=== PATIENT | female | born 1980 | race Caucasian/White ===

== ENCOUNTER 2024-12-09 14:53 | Inpatient (IN) | payer MEDICAID ==
[2024-12-09] MEDS ORDERED: HALOPERIDOL LACTATE 5 MG/ML 1 ML VIAL IM PRN (16:21)
[2024-12-09] MEDS ORDERED: IBUPROFEN 600 MG TAB PO PRN (16:21)
[2024-12-09] MEDS ORDERED: LORazepam 2 MG/ML INJ IM PRN (16:21)
[2024-12-09] MEDS ORDERED: ACETAMINOPHEN TAB 325 MG TAB PO PRN (16:21)
[2024-12-09] MEDS ORDERED: MAG HYDROX/AL HYDROX/SIMETH 355 ML BOTTLE PO PRN (16:21)
[2024-12-09] MEDS ORDERED: MAGNESIUM HYDROXIDE 2,400 MG/30 ML CUP PO PRN (16:21)
[2024-12-09] MEDS: haloperidoL 5 MG TAB PO PRN (21:04)
[2024-12-09] MEDS: LORazepam 1 MG TAB PO PRN (21:04)
[2024-12-10] MEDS: NICOTINE 14MG/24HR PATCH TRANSDERM SCH (10:09)
[2024-12-10] MEDS: NICOTINE GUM (POLACRILEX) 2 MG GUM BUCCAL PRN (10:53)
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
[2024-12-11] MEDS: PALIPERIDONE 6 MG TAB.ER.24 PO SCH (00:41)
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
[2024-12-11] MEDS: traZODone HCL 50 MG TAB PO PRN (21:47)
[2024-12-12 08:20] LABS: HCT 37.9 % (37.2-46.3); HGB 12.6 g/dL (12.0-15.0); MCH 32.6 pg (27.0-32.0); MCHC 33.2 g/dL (32.0-37.0); MCV 97.9 fL (80.0-97.0); Mean Platelet Volume 11.8 fL (9.5-12.2); Platelet Count 166 10*3/uL (140-440); RBC 3.87 10*6/uL (4.10-5.20); WBC 6.49 10*3/uL (4.50-10.00)
[2024-12-12 08:52] LABS: ALT 18 U/L (4-34); AST 23 U/L (14-36); African American GFR (CKD) >90 (>60 ml/min/1.73 sqM); Albumin 4.1 g/dL (3.5-5.0); Alkaline Phosphatase 80 U/L (38-126); Anion Gap 3 mmol/L; Blood Urea Nitrogen 12 mg/dL (7-17); Calcium 9.8 mg/dL (8.4-10.2); Carbon Dioxide 30 mmol/L (22-30); Chloride 103 mmol/L (98-107); Glucose 105 mg/dL (74-99); Non-African American GFR(CKD) >90 (>60 ml/min/1.73 sqM); Potassium 4.7 mmol/L (3.5-5.1); Sodium 136 mmol/L (137-145); Total Bilirubin 0.3 mg/dL (0.2-1.3); Total Protein 6.4 g/dL (6.3-8.2)
--- NOTE | 2024-12-12 10:50 | P.PN ---
Progress Note - Text Progress Note Date: 12/12/24 Interval History: Patient was seen staring out the window in her room and was directable and agr eeable to speak with play writer in the shepherd at her request. Patient continues to refuse her Invega however has been receiving as needed trazodone and Ativan for sleep and anxiety. She continues to display poor insight, stated that she does not need any medications other than benzodiazepines as they have been effective in the past. She claims feeling more clearheaded with concerns that Invega might cause sedation. Patient displayed paranoia, stated that the police is trying to take her organs and that was why she was ultimately brought here. She mentions sleeping well overnight. The involuntary process was explained and patient became upset stating play writer is trying to push medications that she does not need. She states not having anywhere to go upon discharge, unsure where her children are. At this time patient denies any suicidal or homicidal ideations, intent or plan. Mental Status Exam: General Appearance: Patient appears to be stated age is alert, directable, and cooperative. Behavior: Patient is calmly standing without any agitated behavior. Irritable Speech: Patient's speech is fluent and nonpressured. Mood/Affect: Mood is "upset", affect is congruent and constricted. Suicidality/Homicidality: Patient denies having any suicidal or homicidal ideation intent or plan. Perceptions: Patient denies any visual hallucinations and denies any auditory hallucinations Though content/process: There is evidence of paranoid delusions Memory and concentration: AOX3, grossly intact for the purposes of this session Judgment and insight: Poor Assessment Psychosis, unspecified Rule out schizophrenia versus schizoaffective disorder Nicotine dependence Plan: -Patient continues to meet criteria for inpatient psychiatric admission for symptom stabilization and safety. Patient has not signed adult voluntary form and medication consent and was placed in patient's chart. -Medications: Continue to offer Invega 6 mg at bedtime for psychosis, trazodone 50 mg as needed at bedtime for insomnia (note patient has been refusing this medication) -When necessary Ativan and Haldol for agitation/aggression. -Labs: Reviewed prior to arrival -NRT - nicotine patch -SW on board for discharge planning. Encouraged the patient to participate in milieu. Deferral scheduled for this afternoon with full hearing next week
--- NOTE | 2024-12-12 21:43 | P.MDCNMH ---
<Tete Leary - Last Filed: 12/12/24 21:43> History of Present Illness H&P Date: 12/11/24 Patient is a 44 year old female with no significant past medical history, admitted to this hospital for psychosis and nicotine dependence, seen today in medical consultation for medical management. Patient initially presented to the hospital with paranoia. She was transferred from [facility]. The patient was found walking in the street in front of cars waving them down and barefoot, talking to herself with bizarre behavior. She has been admitted for psychosis, schizophrenia versus schizoaffective disorder. She is currently being treated with Haldol, Ativan, Invega, Desyrel. Patient denies taking any medications at home for medical conditions. At the time of this interview patient denies fever, chills, shortness of breath, cough, chest pain, palpitations, abdominal pain, nausea, vomiting, hematuria, dysuria, hematochezia, melena, headache, slurred speech, numbness, tingling, dizziness, lightheadedness, blurred vision, double vision. Vitals T 97.9 F, [place] 62 bpm, RR 18, BP 119/73, oxygen saturation 97% on room air Review of systems: Pertinent positives and negatives as discussed in HPI, a complete review of systems was performed and all other systems are negative. Physical examination: Vital signs reviewed General: nontoxic, no distress, appears at stated age Derm: warm, dry, intact Head: atraumatic, normocephalic, symmetric Cardiovascular: S1 S2 reg, no murmur Lungs: CTA bilateral, no rhonchi, no rales, no accessory muscle use Abdominal: soft, non-tender to palpation Extremities: No cyanosis, clubbing, or pedal edema. Neuro: Alert, Oriented, Gross neurological examination did not reveal any focal deficits. Assessment/Plan: Patient is a 44 year old female with no significant past medical history, admitted to this hospital for psychosis and nicotine dependence, seen today in medical consultation for medical management. #. Nicotine dependence Continue nicotine patch and nicotine gum #. Constipation Continue milk of magnesia #. GI upset Continue Maalox 30 mL p.o. every 4 hours as needed #. Psychosis Patient is currently receiving Haldol, Ativan, Invega, Desyrel per primary admitting team Continue acetaminophen and ibuprofen for pain management Monitor vital signs Monitor CBC Monitor CMP Dictation was produced using [employer] dictation software. please excuse any grammatical, word or spelling errors. Tete Leary MD PGY-1 IM Past Medical History Past Medical History: No Reported History History of Any Multi-Drug Resistant Organisms: None Reported Past Surgical History: No Surgical Hx Reported Past Anesthesia/Blood Transfusion Reactions: No Reported Reaction Past Psychological History: ADD/ADHD, PTSD Smoking Status: Current some day smoker Past Alcohol Use History: None Reported Past Drug Use History: None Reported Medications and Allergies Home Medications Medication Instructions Recorded Confirmed Type No Known Home Medications 12/09/24 12/09/24 History Allergies Allergy/AdvReac Type Severity Reaction Status Date / Time No Known Allergies Allergy Verified 12/09/24 15:36 Physical Exam Vitals: Vital Signs Temp Pulse Resp BP Pulse Ox 12/11/24 09:00 97.9 F 62 18 119/73 97 Cranial Nerve Examination - Cranial Nerves Cranial Nerve I- Olfactory: Intact Cranial Nerve II- Optic: Intact Cranial Nerve III- Oculomotor: Intact Cranial Nerve IV- Trochlear: Intact Cranial Nerve V- Trigeminal: Intact Cranial Nerve - Abducens: Intact Cranial Nerve VII- Facial: Intact Cranial Nerve VIII- Auditory: Intact Cranial Nerve IX- Glossopharyngeal: Intact Cranial Nerve X- Vagus: Intact Cranial Nerve XI- Accessory: Intact Cranial Nerve XII- Hypoglossal: Intact Results CBC & Chem 7: 12/12/24 07:56 12/12/24 07:56 <Juan Jose Barone M - Last Filed: 12/14/24 06:26> History of Present Illness I Discussed the case with the resident and agree with the resident's findings I edited the assessment and plan as necessary as documented in the resident's note. Physical Exam Vitals: Vital Signs Temp Pulse Pulse Resp BP Pulse Ox 12/13/24 21:00 97.8 F 87 87 16 97/57 95 12/13/24 08:53 97.4 F L 91 100/66 97 Cranial Nerve Examination - Cranial Nerves Cranial Nerve II- Optic: Intact Cranial Nerve III- Oculomotor: Intact Cranial Nerve IV- Trochlear: Intact Cranial Nerve V- Trigeminal: Intact Cranial Nerve - Abducens: Intact Cranial Nerve VII- Facial: Intact Cranial Nerve VIII- Auditory: Intact Cranial Nerve IX- Glossopharyngeal: Intact Cranial Nerve X- Vagus: Intact Cranial Nerve XI- Accessory: Intact Cranial Nerve XII- Hypoglossal: Intact Results CBC & Chem 7: 12/12/24 07:56 12/12/24 07:56
--- NOTE | 2024-12-13 11:59 | P.PN ---
Progress Note - Text Progress Note Date: 12/13/24 Interval History: Patient was seen wandering the hallways and was directable and agreeable to sp eak with journalists and other writers in the shepherd. Patient continues to be upset, irritable with journalists and other writers due to being on psychotropic medications, displaying poor insight into her need for treatment. There is ongoing paranoid delusions, patient expressed concerns with her heart being taken, her receiving dirty HIV blood stating that she hopes "it was all worth it". She talked about the "crooked supervising film or videotape editor who needs to be on meds". She expresses desire to be discharged however she was informed of pending court scheduled for next week given her refusal to sign deferral. Disorganized in thoughts. At this time patient denies any suicidal or homicidal ideations, intent or plan. Patient denies any auditory, visual hallucinations. Patient denies any side effects from the medications and has been compliant with meds. Mental Status Exam: General Appearance: Patient appears to be stated age is alert, directable, and minimally cooperative. She is seen with a zamora over her head, disheveled appearance Behavior: Patient is calmly standing without any agitated behavior. Irritable Speech: Patient's speech is fluent and nonpressured. Mood/Affect: Mood is upset, affect is congruent and constricted. Suicidality/Homicidality: Patient denies having any suicidal or homicidal ideation intent or plan. Perceptions: Patient denies any visual hallucinations and denies any auditory hallucinations Though content/process: There is evidence of predominant paranoid delusions Memory and concentration: AOX3, grossly intact for the purposes of this session Judgment and insight: Poor Assessment Psychosis, unspecified Rule out schizophrenia versus schizoaffective disorder Nicotine dependence History of methamphetamine use disorder Plan: -Patient continues to meet criteria for inpatient psychiatric admission for symptom stabilization and safety. Patient has not signed adult voluntary form and medication consent and was placed in patient's chart. -Medications: Increase Invega to 9 mg at bedtime for psychosis, continue trazodone 50 mg as needed at bedtime for insomnia -When necessary Ativan and Haldol for agitation/aggression. -Labs: Reviewed prior to arrival -NRT - nicotine patch -SW on board for discharge planning. Encouraged the patient to participate in milieu. Patient did not sign deferral, awaiting court scheduled for next week
[2024-12-13] MEDS: PALIPERIDONE 3 MG TAB.ER.24 PO SCH (21:03)
--- NOTE | 2024-12-14 11:09 | P.PN ---
Subjective Progress Note Date: 12/14/24 Principal diagnosis: Psychosis NOS probably Bipolar manic Patient was seen wandering the hallways and was directable and agreeable to speak with singer songwriter in the shepherd. Patient continues to be upset, irritable with singer songwriter due to being on psychotropic medications, displaying poor insight into her need for treatment. There is ongoing paranoid delusions, patient expressed concerns with her heart being taken, her receiving dirty HIV blood stating that she hopes "it was all worth it". She talked about a former psychiatrist who , "probably from using his own drugs." She expresses desire to be discharged however she was informed of pending court scheduled for next week given her refusal to sign deferral. Disorganized in thoughts. At this time patient denies any suicidal or homicidal ideations, intent or plan. Patient denies any auditory, visual hallucinations. Patient denies any side effects from the medications and has been compliant with meds. However she says they will not work and that she needs Adderall and Xanax but she is not a drug seeker and is not even accepting ativan in here. Mental Status Exam:she has pressured speech and flight of ideas. General Appearance: Patient appears to be stated age is alert, directable, and minimally cooperative. Behavior:Talking loudly in the shepherd on how everyone is just out for themselves. Speech: Patient's speech is fluent and nonpressured. Mood/Affect: Mood is upset, affect is congruent and constricted. Suicidality/Homicidality: Patient denies having any suicidal or homicidal ideation intent or plan. Perceptions: Patient denies any visual hallucinations and denies any auditory hallucinations Though content/process: There is evidence of predominant paranoid delusions Memory and concentration: AOX3, grossly intact for the purposes of this session Judgment and insight: Poor Assessment Psychosis, unspecified Rule out schizophrenia versus schizoaffective disorder Nicotine dependence History of methamphetamine use disorder Plan:No change in medications for now -Patient continues to meet criteria for inpatient psychiatric admission for symptom stabilization and safety. Patient has not signed adult voluntary form and medication consent and was placed in patient's chart. -Medications: Increase Invega to 9 mg at bedtime for psychosis, continue trazodone 50 mg as needed at bedtime for insomnia -When necessary Ativan and Haldol for agitation/aggression. -Labs: Reviewed prior to arrival -NRT - nicotine patch -SW on board for discharge planning. Encouraged the patient to participate in milieu. Patient did not sign deferral, awaiting court scheduled for next week Objective - Vital Signs Vital signs: Vital Signs Temp 97.8 F 12/13/24 21:00 Pulse 87 12/13/24 21:00 Resp 16 12/13/24 21:00 BP 97/57 12/13/24 21:00 Pulse Ox 95 12/13/24 21:00 FiO2 - Labs CBC & Chem 7: 12/12/24 07:56 12/12/24 07:56
[2024-12-14] MEDS: BENZOCAINE/MENTHOL LOZENG 1 EACH LOZENGE MUCOUS MEM PRN (12:32)
--- NOTE | 2024-12-15 07:26 | P.PN ---
Subjective Progress Note Date: 12/15/24 Principal diagnosis: Psychosis NOS probably Bipolar manic Patient came readily to my office and was talkative. She was quite grandiose and constantly rambling. She did not raise her voice and was not aggressive. She said that if we let her out of here she would buy property next to the [place] and build [place] and go on search and rescue missions because she is really but that she needs to retire and she wears shirts to bed that says that she loves Phil because she wants to witness even in her sleep but you should not mention God in psychiatric hospitals they will think you are crazy. (It is impossible for me to write her flight of ideas without some organization she is actually looser than the above would indicate constantly jumping from 1 topic to another). At this time patient denies any suicidal or homicidal ideations, intent or plan. Patient denies any auditory, visual hallucinations. Patient denies any side effects from the medications and has been compliant with meds. However she says they will not work and that she needs Adderall and Xanax but she is not a drug seeker and is not even accepting ativan in here. Mental Status Exam:she has pressured speech and flight of ideas. General Appearance: Patient appears to be stated age is alert, directable, and minimally cooperative. Behavior: Hyper social always with people and talking Speech: Patient's speech is fluent and slightly pressured Mood/Affect: Mood is fairly positive at this time, affect is congruent and constricted. Suicidality/Homicidality: Patient denies having any suicidal or homicidal ideation intent or plan. Perceptions: Patient denies any visual hallucinations and denies any auditory hallucinations Though content/process: Did not evidence any paranoid thinking because her mind was racing and all the grandiose think she is going to do Memory and concentration: AOX3, grossly intact for the purposes of this session Judgment and insight: Poor Assessment Bipolar 1 manic Nicotine dependence History of methamphetamine use disorder Plan:No change in medications for now she is on 9 mg of Invega this taking a little while to kick in but it is a good dose she just has a real strong orly right now. -Patient continues to meet criteria for inpatient psychiatric admission for symptom stabilization and safety. Patient has not signed adult voluntary form and medication consent and was placed in patient's chart. -Medications: Increase Invega to 9 mg at bedtime for psychosis, continue trazodone 50 mg as needed at bedtime for insomnia -When necessary Ativan and Haldol for agitation/aggression. -Labs: Reviewed prior to arrival -NRT - nicotine patch -SW on board for discharge planning. Encouraged the patient to participate in milieu. Patient did not sign deferral, awaiting court scheduled for next week Objective - Vital Signs Vital signs: Vital Signs Temp 97.2 F L 12/14/24 21:00 Pulse 81 12/14/24 21:00 Resp 18 12/14/24 21:00 BP 104/67 12/14/24 21:00 Pulse Ox 97 12/14/24 21:00 FiO2 - Labs CBC & Chem 7: 12/12/24 07:56 12/12/24 07:56
[2024-12-15] MEDS: PALIPERIDONE 3 MG TAB.ER.24 PO SCH (20:17)
--- NOTE | 2024-12-16 13:15 | P.PN ---
Progress Note - Text Progress Note Date: 12/16/24 Interval History: Patient was seen in her room and was directable and agreeable to speak with wr iter in the room. She reports sleeping "24 hours a day" with the increase in Invega, requesting this to be decreased back down to 6 mg. This was discouraged however telegraphic typewriter repairer did bring up alternative medications to which patient immediately declined, displaying poor insight and stated that she only needs to be on Klonopin. Patient did appear more goal oriented, more calm today however still preoccupied with paranoid delusions described as her ex potentially stealing things from her home and previously selling her medications. She states the menthol lozenges has been helpful for her cigarette addiction. She does report racing thoughts. Awaiting court which is scheduled for tomorrow. Discussed with patient the plan to transition to [facility] however she was resistant. At this time patient denies any suicidal or homicidal ideations, intent or plan. Patient denies any auditory, visual hallucinations. She has been compliant with meds. Mental Status Exam: General Appearance: Patient appears to be stated age is alert, directable, and cooperative. She has questionable hygiene Behavior: Patient is calmly seated without any agitated behavior. Less irritable Speech: Patient's speech is fluent and talkative Mood/Affect: Mood is improving mildly, affect is congruent and constricted. Suicidality/Homicidality: Patient denies having any suicidal or homicidal ideation intent or plan. Perceptions: Patient denies any visual hallucinations and denies any auditory hallucinations Though content/process: There is evidence of paranoid delusions Memory and concentration: AOX3, grossly intact for the purposes of this session Judgment and insight: Poor Assessment Schizoaffective disorder, bipolar type Nicotine dependence History of methamphetamine use disorder Plan: -Patient continues to meet criteria for inpatient psychiatric admission for symptom stabilization and safety. Patient has not signed adult voluntary form and medication consent and was placed in patient's chart. -Medications: Continue Invega 9 mg at bedtime for psychosis, trazodone 50 mg as needed at bedtime for insomnia -When necessary Ativan and Haldol for agitation/aggression. -Labs: Reviewed prior to arrival -NRT - nicotine patch -SW on board for discharge planning. Encouraged the patient to participate in milieu. Course scheduled for tomorrow at 9 AM. Patient to be transitioned to [facility] prior to discharge
[2024-12-17] MEDS ORDERED: HALOPERIDOL LACTATE 5 MG/ML 1 ML VIAL IM PRN (10:17)
--- NOTE | 2024-12-17 13:01 | P.PN ---
Progress Note - Text Progress Note Date: 12/17/24 Interval History: Patient was seen wandering the hallways and in court today. Patient continues to exhibit delusional thoughts, stated that the Invega turned her toenails green and that keno writer/runner did nothing about this however this is the first time keno writer/runner is hearing of this concern. Patient continues to refuse her Invega intermittently however in court stated she had only refused it once. Patient was upset when the material cutter ordered her to 60/180 mental health treatment, sending threats to [facility] and stated to keno writer/runner that keno writer/runner "better not come and talk to me or else". Patient was later heard in the shower responding to internal stimuli, loudly talking to herself. Mental Status Exam: General Appearance: Patient appears to be stated age is alert, directable, and cooperative. Behavior: Patient appeared restless, irritable Speech: Patient's speech is fluent and talkative Mood/Affect: Mood is upset, affect is congruent and labile. Suicidality/Homicidality: Patient denies having any suicidal or homicidal ideation intent or plan. Perceptions: Patient denies any visual hallucinations however patient was seen responding to internal stimuli Though content/process: There is evidence of paranoid delusions, bizarre delusions exhibited Memory and concentration: AOX3, grossly intact for the purposes of this session Judgment and insight: Poor Assessment Schizoaffective disorder, bipolar type Nicotine dependence History of methamphetamine use disorder Plan: -Patient continues to meet criteria for inpatient psychiatric admission for symptom stabilization and safety. Patient has not signed adult voluntary form and medication consent and was placed in patient's chart. -Medications: Discontinue Invega and start Haldol 5 mg at bedtime for psychosis with as needed IM backup if patient refuses Haldol per court order, trazodone 50 mg as needed at bedtime for insomnia -When necessary Ativan and Haldol for agitation/aggression. -Labs: Reviewed prior to arrival -NRT - nicotine patch -SW on board for discharge planning. Encouraged the patient to participate in milieu. Patient court ordered today to 60/180 days. Ultimate goal is to transition to [facility] prior to discharge
[2024-12-17] MEDS: haloperidoL 5 MG TAB PO SCH (20:39)
--- NOTE | 2024-12-18 13:53 | P.PN ---
Progress Note - Text Progress Note Date: 12/18/24 Interval History: Patient was seen wandering the hallways and was directable and agreeable to sp eak with ghost writer in the [facility]pherd privately. Patient continues to display poor insight into the her need for treatment, stated that she only needs Klonopin and that this has worked wonders for her in the past. She continues to express paranoid delusions described as someone stealing her medications which was the cause of her nonadherence previously. She mentioned a friend previously having a stroke on Haldol however she reports tolerating this medication well, reporting discoloration of her toenails from the Invega to which ghost writer did not notice on examination. At this time patient denies any suicidal or homicidal ideations, intent or plan. Patient denies any auditory, visual hallucinations. Patient denies any side effects from the medications and has been compliant with meds. Mental Status Exam: General Appearance: Patient appears to be stated age is alert, directable, and cooperative. Behavior: Patient appeared restless, irritable Speech: Patient's speech is fluent and talkative Mood/Affect: Mood is improving mildly, affect is congruent and labile. Suicidality/Homicidality: Patient denies having any suicidal or homicidal ideation intent or plan. Perceptions: Patient denies any visual hallucinations and denies any auditory hallucinations Though content/process: There is evidence of paranoid delusions Memory and concentration: AOX3, grossly intact for the purposes of this session Judgment and insight: Poor Assessment Schizoaffective disorder, bipolar type Nicotine dependence History of methamphetamine use disorder Plan: -Patient continues to meet criteria for inpatient psychiatric admission for symptom stabilization and safety. Patient has not signed adult voluntary form and medication consent and was placed in patient's chart. -Medications: Increase Haldol to 10 mg at bedtime for psychosis with as needed IM backup if patient refuses p.o. Haldol per court order, trazodone 50 mg as needed at bedtime for insomnia -When necessary Ativan and Haldol for agitation/aggression. -Labs: Reviewed -NRT - nicotine patch -SW on board for discharge planning. Encouraged the patient to participate in milieu. Patient court ordered yesterday. Ultimate plan is to transition to Haldol decanoate prior to discharge.
[2024-12-18] MEDS: haloperidoL 5 MG TAB PO SCH (22:04)
--- NOTE | 2024-12-19 12:37 | P.PN ---
Progress Note - Text Progress Note Date: 12/19/24 Interval History: Patient was seen wandering the hallways and was directable and agreeable to sp lilia with technical report writer in the shepherd. Patient presented irritable, exhibiting paranoia related to her mom after having a phone call with her. Patient was hyperfocused on her mother, difficult to redirect. Patient feels as though her kids are being taken away from her and that there is nothing she can do. She continues to display poor insight, stating that the only thing she needs is Klonopin. She did take Haldol last night with no as needed backups. She feels as though this medication is too strong and that she sleeps all day however she was seen elevated on the unit, no fatigue noted. At this time patient denies any suicidal or homicidal ideations, intent or plan. Patient denies any auditory, visual hallucinations. Patient denies any side effects from the medications and has been compliant with meds. Mental Status Exam: General Appearance: Patient appears to be stated age is alert, directable, and cooperative. Behavior: Patient is irritable, restless Speech: Patient's speech is fluent and pressured Mood/Affect: Mood is irritable, affect is congruent and labile. Suicidality/Homicidality: Patient denies having any suicidal or homicidal ideation intent or plan. Perceptions: Patient denies any visual hallucinations and denies any auditory hallucinations Though content/process: Patient was hyperfocused on her mother, paranoia exhibited Memory and concentration: AOX3, grossly intact for the purposes of this session Judgment and insight: Poor Assessment Schizoaffective disorder, bipolar type Nicotine dependence History of methamphetamine use disorder Plan: -Patient continues to meet criteria for inpatient psychiatric admission for symptom stabilization and safety. Patient has not signed adult voluntary form and medication consent and was placed in patient's chart. -Medications: Continue Haldol 10 mg at bedtime for psychosis with as needed IM backup if patient refuses p.o. Haldol per court order, start lithium ER 450 mg at bedtime for mood stabilization, continue trazodone 50 mg as needed at bedtime for insomnia -When necessary Ativan and Haldol for agitation/aggression. -Labs: Creatinine WNL -NRT - nicotine patch -SW on board for discharge planning. Encouraged the patient to participate in milieu. Patient court ordered on Monday. Ultimate plans to transition to Haldol decanoate prior to discharge, likely sometime next week
[2024-12-19 14:45] VITALS: BMI 22.3
[2024-12-19] MEDS: LITHIUM CARBONATE ER 450 MG TABLET.ER PO SCH (21:25)
--- NOTE | 2024-12-20 13:03 | P.PN ---
Progress Note - Text Progress Note Date: 12/20/24 Interval History: Patient was seen wandering the hallways and was directable and agreeable to sp eak with life underwriter in the shepherd. Patient was upset at life underwriter for starting her on lithium. Department Supervisor discussed with patient the reasonings behind this as patient herself yesterday mentioned her being more angry with difficulty controlling her mood. Patient has displayed irritability, with hyperfocus on past issues with her ex and her mother and appeared to need assistance with mood stabilization. Despite patient being upset with life underwriter she was overall more calm than when seen yesterday. Patient was reminded of her being court ordered and must take both medications. She continues to display poor insight into her need for treatment. At this time patient denies any suicidal or homicidal ideations, intent or plan. Patient denies any auditory, visual hallucinations. Patient denies any side effects from the medications and has been compliant with meds. Mental Status Exam: General Appearance: Patient appears to be stated age is alert, uncooperative. Behavior: Patient seen irritable, less restless than yesterday Speech: Patient's speech is fluent and nonpressured. Mood/Affect: Mood is improving mildly, affect is congruent and constricted. Suicidality/Homicidality: Patient denies having any suicidal or homicidal ideation intent or plan. Perceptions: Patient denies any visual hallucinations and denies any auditory hallucinations Though content/process: There is evidence of paranoid delusions however less fixation than yesterday Memory and concentration: AOX3, grossly intact for the purposes of this session Judgment and insight: Poor Assessment Schizoaffective disorder, bipolar type Nicotine dependence History of methamphetamine use disorder Plan: -Patient continues to meet criteria for inpatient psychiatric admission for symptom stabilization and safety. Patient has not signed adult voluntary form and medication consent and was placed in patient's chart. -Medications: Continue Haldol 10 mg at bedtime for psychosis with as needed IM backup if patient refuses p.o. Haldol per court order, continue lithium ER 450 mg at bedtime for mood stabilization -When necessary Ativan and Haldol for agitation/aggression. -Labs: Creatinine WNL -NRT - nicotine patch -SW on board for discharge planning. Encouraged the patient to participate in milieu. Patient court ordered on Monday. Will transition patient to [facility] prior to discharge, likely sometime next week
--- NOTE | 2024-12-21 16:30 | P.PN ---
Progress Note - Text Progress Note Date: 12/21/24 Dictation was produced using [employer] dictation software. Please excuse any grammatical, word or spelling errors. Interval history: Patient was seen in the [facility] and was directable and agreeable to speak with the film writer in the office for psychiatric follow-up. The patient states that she is feeling sleepy today, states that she does not like her medication, states that "some one want to steal medication from me, Adderall, and Klonopine"." States that "I'm 45 yo and can decide for myself." States that depression and anxiety are at the moderate to high side, she rated depression at 5/10, and anxiety at 10/10. States that she is anxious about her house, and reported that "my ex is ruining my life." She denied any current SI/HI or self harm. She denied any current AVH, however reported that she is talking to her self, and has ringing in her ears in the past. She states that she was in half-way till 12/01, and reported dick tit was related to having drugs. She admitted to good sleep and appetite. She has been compliant with her medication, and she denied any side effects, She states that "my toe nail is turning brown." She denied any muscle stiffness, rigidity, abnormal movements or drooling. States that her mom is also mad at her and is calling her "crazy." The patient was seen in the hallway, mumbling and talking to herself, she has a limited insight into her current mental illness. She does not believe she needs medication however she has been compliant. Mental Status Exam: General Appearance: Patient appears to be stated age is alert, he is calm, and cooperative. Behavior: Patient seen irritable, less restless than yesterday Speech: Patient's speech is fluent and nonpressured. Mood/Affect: Mood is improving mildly, affect is congruent and constricted. Suicidality/Homicidality: Patient denies having any suicidal or homicidal ideation intent or plan. Perceptions: Patient denies any visual hallucinations and denies any auditory hallucinations, patient was seen talking to herself in the hallway Though content/process: There is evidence of paranoid delusions however less fixation than prior Memory and concentration: AOX3, grossly intact for the purposes of this session Judgment and insight: Poor Assessment Schizoaffective disorder, bipolar type Nicotine dependence History of methamphetamine use disorder Assessment/Plan: Continue with current diagnosis. Patient continues to meet criteria for inpatient psychiatric admission for symptom stabilization and safety. Patient will be maintained on current psychotropic medication regimen lithium ER 450 mg at bedtime, and Haldol 10 mg p.o. daily, she has IM backup as well if he refuses Haldol p.o per court order. She denied any current side effects, denied any muscle stiffness, rigidity, abnormal movement, or drooling. Monitor for medication compliance and for any psychotropic medication side effects. Will continue to monitor ongoing response to treatment. Encouraged participation in milieu.
--- NOTE | 2024-12-22 15:12 | P.PN ---
Progress Note - Text Progress Note Date: 12/22/24 Dictation was produced using [employer] dictation software. Please excuse any grammatical, word or spelling errors. Interval history: Patient was seen in the [facility] and was directable and agreeable to speak with the bond underwriter in the office for psychiatric follow-up. The patient states that she is feeling "okay," states that she slept heavy last night, states that "I just need my klonopin." States that anxiety is high, she rated at 6/10, she rated depression at 7/10. She denied any current SI//HI or self harm. She denied any current AVH. Reported that she feels safe, and is getting along well with peers. States that she has been compliant with her medication, reported that she her both of her big toes are turning purple, the bond underwriter tried to reassure the patient about her the color discoloration however she is so fixated on it. She denied any muscle stiffness, rigidity, abnormal movements or drooling. She admitted to good appetite. Mental Status Exam: General Appearance: Patient appears to be stated age is alert, he is calm, and cooperative. Behavior: Patient seem a little irritable, concerned about her toe color, less restless than yesterday Speech: Patient's speech is fluent and nonpressured. Mood/Affect: Mood is improving mildly, affect is congruent and constricted. Suicidality/Homicidality: Patient denies having any suicidal or homicidal ideation intent or plan. Perceptions: Patient denies any visual hallucinations and denies any auditory hallucinations Though content/process: There is evidence of paranoid delusions however less fixation than prior Memory and concentration: AOX3, grossly intact for the purposes of this session Judgment and insight: Poor Assessment Schizoaffective disorder, bipolar type Nicotine dependence History of methamphetamine use disorder Assessment/Plan: Continue with current diagnosis. Patient continues to meet criteria for inpatient psychiatric admission for symptom stabilization and safety. Patient will be maintained on current psychotropic medication regimen lithium ER 450 mg at bedtime, and Haldol 10 mg p.o. daily, she has IM backup as well if he refuses Haldol p.o per court order. She has been compliant with her medication, she denied any current side effects, denied any muscle stiffness, rigidity, abnormal movement, or drooling. Monitor for medication compliance and for any psychotropic medication side effects. Will continue to monitor ongoing response to treatment. Encouraged participation in milieu.
--- NOTE | 2024-12-23 10:34 | P.PN ---
Progress Note - Text Progress Note Date: 12/23/24 Interval History: Patient was seen in her room and was directable and agreeable to speak with wr iter in the room. Patient appeared less fixated on paranoid delusions however still evident, stating that her ex is the reason why she is here due to him stealing her medication previously. She continues to display poor insight, stating that she feels as though the only thing she needs are benzodiazepines. She has been compliant with her psychotropic medications, requiring no as needed backup's. She states she will return home with her mom. She reports some fatigue which she states waking up later than normal. Discussed with patient the need to transition to [facility] given history of nonadherence and court order to which patient was in disagreement, stating that she will take the medications by mouth and does not feel as though she needs an injectable. At this time patient denies any suicidal or homicidal ideations, intent or plan. Patient denies any auditory, visual hallucinations. Mental Status Exam: General Appearance: Patient appears to be stated age is alert, directable, and m ore cooperative. Behavior: Patient is calmly lying without any agitated behavior. Speech: Patient's speech is fluent and nonpressured. Mood/Affect: Mood is improving mildly, affect is congruent and constricted. Suicidality/Homicidality: Patient denies having any suicidal or homicidal ideation intent or plan. Perceptions: Patient denies any visual hallucinations and denies any auditory hallucinations Though content/process: There is evidence of paranoid delusions however less fixation than previous encounter Memory and concentration: AOX3, grossly intact for the purposes of this session Judgment and insight: Poor Assessment Schizoaffective disorder, bipolar type Nicotine dependence History of methamphetamine use disorder Plan: -Patient continues to meet criteria for inpatient psychiatric admission for symptom stabilization and safety. Patient has not signed adult voluntary form and medication consent and was placed in patient's chart. -Medications: Patient to transition to Haldol decanoate 100 mg IM to be given today with an oral bridge for 1 week. Will continue Haldol 10 mg at bedtime for psychosis, lithium ER 450 mg at bedtime for mood stabilization -When necessary Ativan and Haldol for agitation/aggression. -Labs: [place] level ordered for tomorrow -NRT - nicotine patch -SW on board for discharge planning. Encouraged the patient to participate in milieu. Patient court ordered last Monday. Will discharge back home with mom tomorrow pending transition to Haldol Decanoate today
[2024-12-23] MEDS: HALOPERIDOL DECANOATE 100 MG/ML 1 ML VIAL IM SCH (13:34)
[2024-12-23 21:37] VITALS: BP 112/68; PULSE 96; RESP 18; TEMP 97.6
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
== END 2024-12-24 15:25 | disposition home or self-care (01) | DRG 761 ==
LOC: 3MHU 16:14
PROVIDERS: ADMIT Psychiatry & Neurology Psychiatry; ATTEND Psychiatry & Neurology Psychiatry
DX: F25.0 Schizoaffective disorder, bipolar type (principal); F10.11 Alcohol abuse, in remission; F15.11 Other stimulant abuse, in remission; K59.00 Constipation, unspecified; K30 Functional dyspepsia; Z56.0 Unemployment, unspecified; Z91.51 Personal history of suicidal behavior
CPT/HCPCS: 80053; 80178; 85027